=== PATIENT | male | born 1985 | race African-American/Black ===

== ENCOUNTER 2017-01-05 13:09 | Emergency (ER) | payer SELFPAY ==
[~2017-01-05] VITALS: Ht 172.7 cm; Wt 60.0 kg
[~2017-01-05 13:09] MED LIST: CYCL-36 PO
[2017-01-05 13:11] VITALS: BP 123/60; PULSE 92; RESP 20; TEMP 98.1; O2SAT 99
--- NOTE | 2017-01-05 14:17 | PD ---
HPI Chief Complaint: Injury Time Seen by Provider: 14:17 Travel History International Travel<30 days: No Contact w/Intl Traveler<30days: No Traveled to known affect area: No History of Present Illness HPI 31-year-old male with no significant medical history presents to emergency room for evaluation of right shoulder pain after an injury sustained while wrestling with his brother. Patient rates the pain 8 out of 10. States that he can move the shoulder but this elicits more pain. Denies any alterations in sensation. Did not strike his head or lose consciousness. He has no other symptoms to report. PFSH Past Medical History Respiratory: Yes (COLLAPSED LUNG) Social History Alcohol Use: Yes (couple times week) Tobacco Use: Yes (/2 ppd) Substance Use: No Allergies-Medications (Allergen,Severity, Reaction): Coded Allergies: No Known Allergies (Unverified , 02/28/16) Reported Meds & Prescriptions Reported Meds & Active Scripts Active Lortab (Hydrocodone-Acetaminophen) 5-325 Mg Tab 1 Tab PO Q6H PRN Naprosyn (Naproxen) 500 Mg Tab 500 Mg PO BID PRN Flexeril (Cyclobenzaprine HCl) 10 Mg Tab 10 Mg PO Q8HR PRN Review of Systems Except as stated in HPI: all other systems reviewed are Neg Physical Exam Narrative GENERAL: Well-nourished male patient, no acute distress. SKIN: Focused skin assessment warm/dry. HEAD: Atraumatic. Normocephalic. EYES: Pupils equal and round. No scleral icterus. No injection or drainage. ENT: No nasal bleeding or discharge. Mucous membranes pink and moist. NECK: Trachea midline. No JVD. CARDIOVASCULAR: Elevated rate and rhythm. No murmur appreciated. RESPIRATORY: No accessory muscle use. Clear to auscultation. Breath sounds equal bilaterally. GASTROINTESTINAL: Abdomen soft, non-tender, nondistended. Hepatic and splenic margins not palpable. MUSCULOSKELETAL: No obvious deformities. No clubbing. No cyanosis. No edema. Deformity of the right clavicle. No tenting. Patient has full range of motion of the shoulder but does report pain elicited with this. NEUROLOGICAL: Awake and alert. No obvious cranial nerve deficits. Motor grossly within normal limits. Normal speech. PSYCHIATRIC: Appropriate mood and affect; insight and judgment normal. Data Data Last Documented VS Vital Signs Date Time Temp Pulse Resp B/P Pulse Ox O2 Delivery O2 Flow Rate FiO2 01/05/17 14:49 78 16 01/05/17 13:11 98.1 123/60 99 Room Air Orders Clavicle (01/05/17 13:47) Shoulder, Complete (>2vws) (01/05/17 13:47) Acetamin-Hydrocod 325-5 Mg (Rosser 5-325 (01/05/17 14:30) Ketorolac Inj (Toradol Inj) (01/05/17 14:30) Splint Or Brace Apply/Monitor (01/05/17 14:21) Sling Cradle Arm (01/05/17 ) MDM Medical Decision Making Medical Screen Exam Complete: Yes Emergency Medical Condition: Yes Medical Record Reviewed: Yes Differential Diagnosis Fracture versus contusion versus dislocation Narrative Course 31-year-old male presents for screening for evaluation right shoulder injury. Patient does have obvious deformity of the acromial end of the right clavicle. It is displaced. Patient is treated for pain, placed in a sling and encouraged to seek orthopedic evaluation. He'll be discharged at this time. Diagnosis Primary Impression: Clavicular fracture, closed, acromial end Qualified Code: S42.031A - Closed displaced fracture of acromial end of right clavicle, initial encounter Referrals: Orthopaedic Surgeon Primary Care Physician Patient Instructions: Clavicle Fracture (ED), General Instructions, How to Use a Sling (GEN) Additional Instructions: Ice to the affected area Wear sling for support Follow with legal support specialist Return immediately to the emergency department with any acute worsening symptoms Med/Other Pt SpecificInfo: Prescription(s) given Scripts Hydrocodone-Acetaminophen (Lortab)5-325 Mg Tab1 Tab PO Q6H PRN (PAIN GREATER THAN 5) #12 TAB Ref 0 Prov:Doris Callaway 01/05/17 Naproxen (Naprosyn)500 Mg [id number] Mg PO BID PRN (PAIN SCALE 1 TO 10) #30 TAB Ref 0 Prov:Doris Callaway 01/05/17 Disposition: 01 DISCHARGE HOME Condition: Stable Doris Callaway Jan 05, 2017 14:17
[2017-01-05] MEDS ORDERED: HYDR-3533 PO (14:23)
[2017-01-05] MEDS ORDERED: NAPR500 PO (14:23)
[2017-01-05] MEDS ORDERED: KETOROLAC TROMETHAMINE 60 MG/2 ML (IM) VIAL IM ONE (14:30)
[2017-01-05] MEDS ORDERED: ACETAMINOPHEN/HYDROcodone 325 MG/5 MG TAB PO ONE (14:30)
--- NOTE | 2017-01-05 14:55 | RADRPT ---
EXAM DATE/TIME: 01/05/2017 14:16 [facility] COMPARISON: No previous studies available for comparison. INDICATIONS : Right clavicle pain, injured while wrestling. MEDICAL HISTORY : None. SURGICAL HISTORY : None. ENCOUNTER: Initial ACUITY: 1 day PAIN SCORE: 10/10 LOCATION: Right clavicle FINDINGS: There is a displaced distal right clavicle fracture mid a.c. joint with at least one half shaft width displacement. No other fractures identified. CONCLUSION: 1. Distal right clavicle fracture near the a.c. joint. Farhad Quinones MD on January 05, 2017 at 14:52 Board Certified Radiologist. This report was verified electronically.
--- NOTE | 2017-01-05 14:55 | RADRPT ---
EXAM DATE/TIME: 01/05/2017 14:12 [facility] COMPARISON: No previous studies available for comparison. INDICATIONS : Right shoulder pain, injured while wrestling. MEDICAL HISTORY : None. SURGICAL HISTORY : None. ENCOUNTER: Initial ACUITY: 1 day PAIN SCORE: 10/10 LOCATION: Right shoulder FINDINGS: There is a fracture of the distal right clavicle displaced about one half shaft width near the a.c. j oint. No other fractures identified. CONCLUSION: 1. Displaced distal right clavicle fracture near the a.c. joint. Farhad Quinones MD on January 05, 2017 at 14:51 Board Certified Radiologist. This report was verified electronically.
== END 2017-01-05 14:56 | disposition home or self-care (01) ==
LOC: NEPC 13:09
DX: S42.031A Displaced fracture of lateral end of right clavicle, initial encounter for closed fracture (principal); X58.XXXA Exposure to other specified factors, initial encounter; Y93.72 Activity, wrestling
CPT/HCPCS: 73000; 73030; 96372; 99284; J1885

== ENCOUNTER 2017-02-05 17:50 | Emergency (ER) | payer SELFPAY ==
[~2017-02-05 17:50] MED LIST changes: +HYDR-3533 PO; +NAPR500 PO
[2017-02-05 17:58] VITALS: BP 111/64; PULSE 100; RESP 20; TEMP 97.5; O2SAT 94
== END 2017-02-05 21:25 | disposition left against medical advice (07) ==
LOC: NED 17:50
DX: Z53.21 Procedure and treatment not carried out due to patient leaving prior to being seen by health care provider (principal)
CPT/HCPCS: 99281